=== PATIENT | female | born 1995 | race Caucasian/White ===

== ENCOUNTER 2023-10-07 20:55 | Emergency (ER) | payer BC, MEDICAID ==
[~2023-10-07] VITALS: Ht 165.1 cm; Wt 77.1 kg
[2023-10-07 21:03] VITALS: BP 163/83; PULSE 80; RESP 20; TEMP 98; O2SAT 97
[2023-10-07] MEDS ORDERED: CYCL-711 PO (21:39)
[2023-10-07] MEDS ORDERED: IBUP-2213 PO (21:39)
== END 2023-10-07 21:48 | disposition home or self-care (01) ==
LOC: MED 20:55
DX: S16.1XXA Strain of muscle, fascia and tendon at neck level, initial encounter (principal); S39.012A Strain of muscle, fascia and tendon of lower back, initial encounter; R03.0 Elevated blood-pressure reading, without diagnosis of hypertension; Z79.899 Other long term (current) drug therapy; V49.88XA Car occupant (driver) (passenger) injured in other specified transport accidents, initial encounter; Y93.89 Activity, other specified; Y92.89 Other specified places as the place of occurrence of the external cause; Y99.8 Other external cause status
CPT/HCPCS: 99283